=== PATIENT | male | born 1970 | race African-American/Black ===

== ENCOUNTER → 2021-02-02 | Outpatient (CLI) | payer MEDICAID ==
[~2021-02-02] MED LIST: ALOG25TA PO; ALPR2TAB2 PO; AMLO10TA80 PO; EMPA10TA PO; GENTAMICIN SULF 40MG/ML 2ML VIAL ONE; HYDR100T26 PO; INSU100I24 SQ; LIDOCAINE HCL/EPINEPHRINE 1%-EPI 1:100,000 20 ML VIAL ONE; LISI40TA13 PO; NAPR500T7 PO; NICARDIPINE 40MG/200ML PREMIX 200 ML IV ONE; OXYC-582 PO; PROPOFOL 10MG/ML 100ML 100 ML IV ONE; THROMBIN (BOVINE) 5000 UNITS/VIAL TOP ONE; [UNRECOGNIZED DRUG - OTHER]
== END | disposition home or self-care (01) ==
LOC: LAB 11:17
PROVIDERS: ATTEND Neurological Surgery
DX: Z01.812 Encounter for preprocedural laboratory examination (principal); Z20.822 Contact with and (suspected) exposure to COVID-19
CPT/HCPCS: 87426

== ENCOUNTER 2021-02-04 05:38 | Inpatient (IN) | payer MEDICAID ==
[~2021-02-04] VITALS: Ht 190.5 cm; Wt 138.3 kg
[2021-02-04] VITALS (13 sets, daily range): BP systolic 86–135; BP diastolic 57–111
[~2021-02-04 05:38] MED LIST changes: -GENTAMICIN SULF 40MG/ML 2ML VIAL ONE; -HYDR100T26 PO; -LIDOCAINE HCL/EPINEPHRINE 1%-EPI 1:100,000 20 ML VIAL ONE; -NICARDIPINE 40MG/200ML PREMIX 200 ML IV ONE; -PROPOFOL 10MG/ML 100ML 100 ML IV ONE; -THROMBIN (BOVINE) 5000 UNITS/VIAL TOP ONE
[2021-02-04] MEDS ORDERED: SODIUM CHLORIDE 0.9% 1,000 ML IV SCH (06:30)
[2021-02-04] MEDS ORDERED: ACETAMINOPHEN 500MG TABLET ONE (07:08)
[2021-02-04] MEDS ORDERED: VECURONIUM BROMIDE 10 MG/VIAL IV ONE ×2 (07:36→08:21)
[2021-02-04] MEDS ORDERED: PHENYLEPHRINE HCL 10 MG/ML 1ML (IV VIAL) IV ONE (07:38)
[2021-02-04 07:45] LABS: CLARITY URINE CLEAR (CLEAR); COLOR URINE YELLOW (YELLOW); KETONES URINE NEGATIVE (NEGATIVE); LEUKOCYTE ESTERASE URINE NEGATIVE (NEGATIVE); NITRITE URINE NEGATIVE (NEGATIVE); OCCULT BLOOD URINE NEGATIVE (NEGATIVE); PH URINE 5.5 (4.5-8.0); PROTEIN URINE 1+ (NEGATIVE); SPECIFIC GRAVITY URINE 1.024 (1.005-1.030); UROBILINOGEN URINE 0.2 E.U./dL (0.2-1.0)
[2021-02-04] MEDS ORDERED: CEFAZOLIN SODIUM 1000MG/VIAL ONE (07:59)
[2021-02-04] MEDS ORDERED: NALOXONE HCL 0.4MG/ML VIAL IV PRN (08:00)
[2021-02-04] MEDS ORDERED: FENTANYL CITRATE/PF 50MCG/ML 2ML VIAL ONE ×2 (08:06→10:32)
[2021-02-04] MEDS ORDERED: METOCLOPRAMIDE HCL 10MG/2ML VIAL ONE ×2 (08:15→08:22)
[2021-02-04] MEDS ORDERED: ONDANSETRON HCL 4MG/2ML INJ ONE (08:15)
[2021-02-04] MEDS ORDERED: HYDROMORPHONE HCL/PF 2MG/ML (OR) ONE (08:16)
[2021-02-04] MEDS ORDERED: PROPOFOL 10MG/ML 100ML 100 ML IV ONE (08:43)
[2021-02-04] MEDS ORDERED: MAGNESIUM 2 G PREMIX 50 ML IV SCH (08:45)
[2021-02-04] MEDS ORDERED: LIDOCAINE HCL 1% 20ML VIAL (Pyxis) INJ ONE (09:01)
[2021-02-04] MEDS ORDERED: FENTANYL CITRATE/PF 50MCG/ML 2ML VIAL IV PRN (09:15)
[2021-02-04] MEDS ORDERED: DEXAMETHASONE 4MG/ML 1ML VIAL ONE (09:27)
[2021-02-04] MEDS ORDERED: GLYCOPYRROLATE 0.2 MG/ML 2ML VIAL ONE ×2 (09:31→10:13)
[2021-02-04] MEDS ORDERED: NEOSTIGMINE METHYLSULFATE 1MG/ML 10 ML VIAL ONE (09:32)
[2021-02-04] MEDS ORDERED: NALOXONE INJ IV PRN (09:45)
[2021-02-04] MEDS ORDERED: DIPHENHYDRAMINE INJ IV PRN (09:45)
[2021-02-04] MEDS ORDERED: ONDANSETRON INJ IV PRN (09:45)
[2021-02-04] MEDS ORDERED: HYDROMORPHONE PCA 10MG/50ML IV PRN (09:45)
[2021-02-04] MEDS ORDERED: HYDRALAZINE 20MG/ML VIAL ONE (10:28)
[2021-02-04] MEDS ORDERED: LABETALOL HCL 5MG/ML VIAL 20ML IV ONE (10:32)
[2021-02-04] MEDS: HYDROMORPHONE HCL/PF 2MG/ML CPJ IV PRN ×3 (10:55→11:39)
[2021-02-04] MEDS: DEXAMETHASONE 4MG/ML 1ML VIAL IV SCH (15:33)
[2021-02-04] MEDS ORDERED: CEFAZOLIN 1000MG PREMIX 50 ML IV SCH (17:00)
[2021-02-04] MEDS: DEXT 5%/LACTATED RINGERS 1,000 ML IV SCH (17:55)
[2021-02-04] MEDS: NICARDIPINE 100 MG in SODIUM CHLORIDE 0.9% 60 ML IV PRN (18:10)
[2021-02-05] VITALS (93 sets, daily range): BP systolic 79–159; BP diastolic 28–100
[2021-02-05] MEDS: NICARDIPINE 100 MG in SODIUM CHLORIDE 0.9% 60 ML IV PRN ×4 (00:46→22:50)
[2021-02-05] MEDS: DEXAMETHASONE 4MG/ML 1ML VIAL IV SCH ×3 (00:47→12:01)
[2021-02-05] MEDS ORDERED: CEFAZOLIN SODIUM 1000MG/VIAL IV SCH (01:00)
[2021-02-05] MEDS: CEFAZOLIN 1000MG PREMIX 50 ML IV SCH ×3 (01:05→17:39)
[2021-02-05] MEDS ORDERED: DEXTROSE 50% WATER 50ML SYRINGE IV ONE (01:23)
[2021-02-05] MEDS: DEXT 5%/LACTATED RINGERS 1,000 ML IV SCH (07:27)
[2021-02-05] MEDS ORDERED: IPRATROPIUM/ALBUTEROL 0.5-3(2.5)MG/3ML NEB HHN PRN (08:00)
[2021-02-05] MEDS: MORPHINE SULFATE 4 MG/ML CPJ (NOT FOR IM USE) IV PRN ×5 (09:10→22:22)
[2021-02-05] MEDS: AMLODIPINE 10MG TABLET PO SCH (09:19)
[2021-02-05] MEDS: LISINOPRIL 40MG TABLET PO SCH (09:19)
[2021-02-05 10:05] LABS: HEMATOCRIT. 41.5 % (42.0-52.0); HEMOGLOBIN. 13.7 g/dL (14.0-18.0); MEAN CORPUSCULAR HEMOGLOBIN 29.5 pg (28.0-32.0); MEAN CORPUSCULAR VOLUME 89.6 fL (80.0-94.0); PLATELET 131 x1000/uL (130-400); RED BLOOD CELL COUNT 4.63 mill/uL (4.7-6.1); RED CELL DISTRIBUTION WIDTH 14.2 % (11.6-14.6)
[2021-02-05 10:32] LABS: CHLORIDE 106 mEq/L (98-107)
[2021-02-05 10:59] LABS: PLATELET ESTIMATE NORMAL
[2021-02-05] MEDS ORDERED: DEXTROSE 50% WATER 50ML SYRINGE IV PRN (12:30)
[2021-02-05] MEDS: BLOOD SUGAR DIAGNOSTIC STRIP TEST SCH ×3 (12:48→20:06)
[2021-02-05] MEDS: INSULIN LISPRO 100 UNITS/ML SUBCUT SCH ×3 (12:53→20:11)
[2021-02-05] MEDS ORDERED: CEFTRIAXONE 1,000 MG in DEXTROSE 5% WATER 50 ML IV SCH (17:00)
[2021-02-05] MEDS: HYDRALAZINE HCL 50MG TABLET PO SCH (17:41)
[2021-02-05] MEDS: INSULIN GLARGINE UD 100 UNITS/ML SYR SUBCUT SCH (20:10)
[2021-02-06] VITALS (54 sets, daily range): BP systolic 108–162; BP diastolic 46–95
[2021-02-06] MEDS: MORPHINE SULFATE 4 MG/ML CPJ (NOT FOR IM USE) IV PRN ×6 (00:32→12:28)
[2021-02-06 05:37] LABS: CHLORIDE 103 mEq/L (98-107)
[2021-02-06 05:43] LABS: HEMATOCRIT. 43.1 % (42.0-52.0); HEMOGLOBIN. 14.3 g/dL (14.0-18.0); MEAN CORPUSCULAR HEMOGLOBIN 29.7 pg (28.0-32.0); MEAN CORPUSCULAR VOLUME 89.3 fL (80.0-94.0); MEAN PLATELET VOLUME 10.2 fl (7.4-10.4); PLATELET 152 x1000/uL (130-400); RED BLOOD CELL COUNT 4.83 mill/uL (4.7-6.1); RED CELL DISTRIBUTION WIDTH 14.2 % (11.6-14.6)
[2021-02-06] MEDS: HYDRALAZINE HCL 50MG TABLET PO SCH (06:15)
[2021-02-06] MEDS: INSULIN LISPRO 100 UNITS/ML SUBCUT SCH ×2 (06:17→12:12)
[2021-02-06] MEDS: BLOOD SUGAR DIAGNOSTIC STRIP TEST SCH ×2 (06:17→12:08)
[2021-02-06] MEDS ORDERED: CLONIDINE 0.1MG TABLET PO PRN (07:45)
[2021-02-06] MEDS: LISINOPRIL 40MG TABLET PO SCH (08:32)
[2021-02-06] MEDS: AMLODIPINE 10MG TABLET PO SCH (08:32)
[2021-02-06] MEDS: INSULIN GLARGINE UD 100 UNITS/ML SYR SUBCUT SCH (08:34)
[2021-02-06] MEDS ORDERED: NICOTINE 14MG PATCH TD SCH (09:00)
[2021-02-06 12:46] LABS: PLATELET ESTIMATE NORMAL
[2021-02-06] MEDS ORDERED: HYDR100T26 PO (12:54)
[2021-02-06] MEDS ORDERED: HYDRALAZINE HCL 100MG TABLET PO SCH (14:00)
== END 2021-02-06 14:15 | disposition home or self-care (01) | DRG 321 ==
LOC: OR 05:38 → MICUNO 21:42
PROVIDERS: ADMIT Neurological Surgery; ATTEND Neurological Surgery
PROC: 0RB30ZZ Excision of Cervical Vertebral Disc, Open Approach (ICD-10-PCS; principal; 2021-02-04)
PROC: 0RG20A0 Fusion of 2 or more Cervical Vertebral Joints with Interbody Fusion Device, Anterior Approach, Anterior Column, Open Approach (ICD-10-PCS; 2021-02-04)
PROC: 4A11X4G Monitoring of Peripheral Nervous Electrical Activity, Intraoperative, External Approach (ICD-10-PCS; 2021-02-04)
DX: M48.02 Spinal stenosis, cervical region (principal); G82.50 Quadriplegia, unspecified; M47.12 Other spondylosis with myelopathy, cervical region; F41.9 Anxiety disorder, unspecified; E11.9 Type 2 diabetes mellitus without complications; G95.20 Unspecified cord compression; I10 Essential (primary) hypertension; Z79.4 Long term (current) use of insulin; Z72.0 Tobacco use; M50.20 Other cervical disc displacement, unspecified cervical region
CPT/HCPCS: 36415; 71045; 72040; 72141; 76000; 80048; 80061; 81003; 82962; 83036; 84443; 85025; 86850; 86900; 88305; 88311; 95863; 95925; 95926; 95928; 95929; 97116; 97162; 97166; 97535; C1713; J0360; J0690; J1100; J1170; J1200; J1580; J1815; J2270; J2370; J2405; J2704; J2710; J2765; J3010; J3475; J3490; J7050; J7121; C1762